=== PATIENT | female | born 1975 | race Two or more races ===

== ENCOUNTER → 2023-03-29 | Emergency (ER) | payer OTHER ==
[~2023-03-29] VITALS: Ht 157.5 cm; Wt 49.9 kg
[~2023-03-29] MED LIST: ZITHROMAX500 MG PO
[2023-03-29 16:57] LABS: HEMATOCRIT 38.1 % (36.0-45.00); HEMOGLOBIN 13.2 g/dL (12.0-15.00); MEAN CELL VOLUME 97.1 fL (80.00-100.00); MEAN CORPUSCULAR HEMOGLOBIN 33.6 pg (27.00-32.0); MEAN CORPUSCULAR HGB CONC 34.6 g/dl (32.0-36.0); PLATELET COUNT 201 K/uL (150-450); RED BLOOD COUNT 3.92 M/uL (4.00-6.00); RED CELL DISTRIBUTION WIDTH 13.1 % (11.5-14.5)
== END | disposition home or self-care (01) ==
LOC: ER 13:55
PROVIDERS: General Practice
DX: B34.9 Viral infection, unspecified (principal); J06.9 Acute upper respiratory infection, unspecified; Z20.822 Contact with and (suspected) exposure to COVID-19

== ENCOUNTER 2024-01-31 16:50 | Emergency (ER) | payer OTHER ==
[~2024-01-31] VITALS: Ht 157.5 cm; Wt 63.5 kg
[2024-01-31] MEDS ORDERED: BUTALB-ACETAMI1 EAC2 PO (17:00)
[2024-01-31] MEDS ORDERED: ONDANSETRON HCL 2 MG/ML VIAL IM ONE (18:00)
[2024-01-31] MEDS ORDERED: RIZATRIPTAN BENZOATE 10 MG TAB PO ONE (18:00)
[2024-01-31] MEDS ORDERED: SUMATRIPTAN SUCCINATE 6 MG/0.5 ML VIAL SUBCUTANEO ONE ×2 (18:15→18:19)
[2024-01-31] MEDS ORDERED: ONDANSETRON HCL 2 MG/ML VIAL ONE (18:19)
[2024-01-31 19:09] LABS: HEMATOCRIT 41.3 % (36.0-45.00); HEMOGLOBIN 14.3 g/dL (12.0-15.00); MEAN CORPUSCULAR HEMOGLOBIN 33.2 pg (27.00-32.0); MEAN CORPUSCULAR HGB CONC 34.6 g/dl (32.0-36.0); PLATELET COUNT 231 K/uL (150-450); RED CELL DISTRIBUTION WIDTH 13.5 % (11.5-14.5)
[2024-01-31 19:47] LABS: ALBUMIN 4.4 gm/dL (3.4-5.0); ALKALINE PHOSPHATASE 55 U/L (50-136); ALT/SGPT 14 U/L (12-78); ANION GAP 9 (10.0-20.0); AST/SGOT 6 U/L (15-37); BILIRUBIN TOTAL 0.28 mg/dL (0.3-1.2); BLOOD UREA NITROGEN 12 mg/dL (7-18); BUN CREA RATIO 15 (7.0-25.0); CARBON DIOXIDE 29 mEq/L (21-32); CHLORIDE 106 mmol/L (98-107); CREATININE SERUM 0.78 mg/dL (0.55-1.02); GFR 79.51; GLOBULINA 4.1 G/DL (2.4-3.5); GLUCOSE FASTING 117 mg/dL (65-100); OSMOLALITY SERUM 280 MOSM/KG (275-295); POTASSIUM 3.58 mEq/L (3.5-5.1); SODIUM 140 mmol/L (136-145); TOTAL PROTEIN 8.5 gm/dL (6.4-8.2)
[2024-01-31 19:58] LABS: HCG QUANTITATIVE < 1 mUI/mL (1-3)
[2024-01-31] MEDS ORDERED: RIZATRIPTAN5 MG PO (21:47)
[2024-01-31] MEDS ORDERED: ZOFRAN8 MG PO (21:47)
== END 2024-01-31 22:16 | disposition home or self-care (01) ==
LOC: ER 16:51
PROVIDERS: General Practice
DX: G43.909 Migraine, unspecified, not intractable, without status migrainosus (principal); Z20.822 Contact with and (suspected) exposure to COVID-19
CPT/HCPCS: 36415; 70460; Q9965